=== PATIENT | female | born 1980 | race Two or more races ===

== ENCOUNTER → 2024-10-27 | Outpatient (CLI) | payer OTHER ==
[~2024-10-27] MED LIST: ACET-897 PO; GNP250TA9 PO; PRENTAB9 PO; PREV15TA2 PO; TUMS500C PO; folate PO
== END ==
LOC: M WHC 12:31
PROVIDERS: ATTEND Obstetrics & Gynecology
DX: Z34.93 Encounter for supervision of normal pregnancy, unspecified, third trimester (principal); Z3A.36 36 weeks gestation of pregnancy

== ENCOUNTER → 2024-10-31 | Outpatient (REF) | payer OTHER | LOC: M SFHCWAGY 09:45 | PROVIDERS: ATTEND Obstetrics & Gynecology | DX: Z3A.36 36 weeks gestation of pregnancy (principal); Z36.85 Encounter for antenatal screening for Streptococcus B ==

== ENCOUNTER 2024-11-01 06:31 | Outpatient (CLI) | payer OTHER ==
[~2024-11-01] VITALS: Ht 170.2 cm; Wt 101.3 kg
[2024-11-01] MEDS ORDERED: folate PO (07:03)
[2024-11-01] MEDS ORDERED: TUMS500C PO (07:03)
[2024-11-01] MEDS ORDERED: PREV15TA2 PO (07:03)
[2024-11-01] MEDS ORDERED: ACET-897 PO (07:03)
[2024-11-01] MEDS ORDERED: PRENTAB9 PO (07:03)
[2024-11-01] MEDS ORDERED: GNP250TA9 PO (07:03)
[2024-11-01 07:15] VITALS: BP 116/65; O2SAT 97
[2024-11-01] MEDS ORDERED: HOME MED LIST COMPLETE! XX SCH (07:15)
[2024-11-01] MEDS: TERBUTALINE SULFATE 1 MG/ML 1ML VIAL SC STA (07:36)
[2024-11-01 07:56] VITALS: BP 142/80
[2024-11-01 08:36] VITALS: BP 131/80
[2024-11-01 10:55] VITALS: BP 127/74; O2SAT 97
== END 2024-11-01 11:06 | disposition home or self-care (01) ==
LOC: M LDO 06:31
PROVIDERS: ATTEND Specialist
DX: O32.1XX0 Maternal care for breech presentation, not applicable or unspecified (principal); O09.523 Supervision of elderly multigravida, third trimester; Z3A.36 36 weeks gestation of pregnancy; Z88.2 Allergy status to sulfonamides
CPT/HCPCS: 59025; 96372; G0463; J3105

== ENCOUNTER 2024-11-16 05:34 | Inpatient (IN) | payer OTHER ==
[2024-11-16] VITALS (9 sets, daily range): BP systolic 107–134; BP diastolic 60–78; TEMP 97.8; O2SAT 97–99
[~2024-11-16] VITALS: Ht 170.2 cm; Wt 103.3 kg
[2024-11-16] MEDS: LACTATED RINGER'S 1000 ML IV STA (06:24)
[2024-11-16 06:32] LABS: PLATELET COUNT, AUTOMATED 137 10^3/uL (150-450)
[2024-11-16] MEDS: LR 1,000 ML IV SCH ×4 (07:22→09:00)
[2024-11-16] MEDS: BICITRA 30 ML SOLN UDC PO ONE (07:24)
[2024-11-16 07:25] LABS: HIV 1&2 SCREEN NEGATIVE (NEGATIVE)
[2024-11-16] MEDS: ceFAZolin SODIUM 2 GM in DEXTROSE 5% (D5W) ADV/MINI-BAG 50 ML IV ONE (07:25)
[2024-11-16 07:33] LABS: HEPATITIS C VIRUS ABY INDEX < 0.02 INDEX (<0.8)
[2024-11-16] MEDS ORDERED: MORPHINE PRES-FREE INJ 10 MG/10 ML VIAL As Ordered ONE (07:42)
[2024-11-16] MEDS ORDERED: ONDANSETRON 4MG 2ML VIAL As Ordered ONE (08:05)
[2024-11-16] MEDS ORDERED: dexAMETHasone 4 MG/ML 1 ML VIAL As Ordered ONE (08:05)
[2024-11-16] MEDS ORDERED: PHENYLephrine 500MCG 5ML (100MCG/ML) SYRINGE As Ordered ONE (08:05)
[2024-11-16] MEDS ORDERED: MIDAZOLAM INJ 2 MG/2 ML VIAL As Ordered ONE (08:16)
[2024-11-16] MEDS ORDERED: OXYTOCIN 30UNITS IN 0.9% NaCl 500ML IV BAG As Ordered ONE (08:34)
[2024-11-16] MEDS ORDERED: PERCOCET 5MG/325MG TAB PO PRN ×2 (08:35)
[2024-11-16] MEDS ORDERED: MOM 30 ML SUSPENSION UDC PO PRN (08:35)
[2024-11-16] MEDS ORDERED: RHOGAM 300MCG (1500IU) INJ IM SCH (08:35)
[2024-11-16] MEDS ORDERED: ONDANSETRON 4MG 2ML VIAL IV PRN ×4 (08:35→09:00)
[2024-11-16] MEDS ORDERED: METHYLERGONOVINE MALEATE 0.2 MG/ML 1 ML VIAL IM PRN (08:35)
[2024-11-16] MEDS ORDERED: SIMETHICONE 80MG CHEW TAB PO PRN (08:35)
[2024-11-16] MEDS: OXYTOCIN DRIP 30 UNITS in IV 1 EA IV SCH (08:35)
[2024-11-16] MEDS ORDERED: CALCIUM CARBONATE 500 MG CHEW U/D PO PRN (08:35)
[2024-11-16] MEDS ORDERED: KETOROLAC 30 MG/ML 1 ML VIAL As Ordered ONE (08:48)
[2024-11-16] MEDS ORDERED: PERCOCET PO (08:51)
[2024-11-16] MEDS ORDERED: COLA100C5 PO (08:51)
[2024-11-16] MEDS ORDERED: IBUP80TA PO (08:51)
[2024-11-16] MEDS ORDERED: NALOXONE INJ 0.4 MG/1 ML VIAL IV PRN ×6 (09:00)
[2024-11-16] MEDS: DOCUSATE SODIUM 100 MG CAPSULE PO SCH (09:00)
[2024-11-16] MEDS: SLF 3 ML SYR IV SCH (09:00)
[2024-11-16] MEDS: PRENATAL VITAMINS CHEWABLE TABLET PO SCH (09:00)
[2024-11-16] MEDS ORDERED: LIDOCAINE 1% SDV 5 ML VIAL SC PRN (09:00)
[2024-11-16] MEDS ORDERED: SLF 3 ML SYR IV SCH ×2 (09:00)
[2024-11-16] MEDS ORDERED: diphenhydrAMINE 50 MG/ML VIAL IV PRN ×3 (09:00)
[2024-11-16] MEDS ORDERED: **NOTE PATIENT COMMENT** MISC XX SCH ×3 (09:00)
[2024-11-16] MEDS ORDERED: TRAM50TA2 PO (09:10)
[2024-11-16] MEDS: KETOROLAC 30 MG/ML 1 ML VIAL IV SCH ×2 (15:31→20:38)
[2024-11-17] MEDS: ACETAMINOPHEN 500 MG TAB PO PRN (00:27)
[2024-11-17 02:00] VITALS: BP 112/61; O2SAT 97
[2024-11-17 06:00] VITALS: BP 118/68; O2SAT 99
[2024-11-17] MEDS: traMADol 50 MG TAB PO PRN (09:50)
[2024-11-17 09:59] VITALS: BP 128/61; O2SAT 95
[2024-11-17] MEDS ORDERED: IBUPROFEN 800 MG TAB PO SCH (10:35)
[2024-11-17 12:21] LABS: PLATELET COUNT, AUTOMATED 131 10^3/uL (150-450)
[2024-11-17 14:01] VITALS: BP 120/69; O2SAT 97
[2024-11-17 18:21] VITALS: BP 122/74; O2SAT 97
[2024-11-17 22:09] VITALS: BP 130/69; O2SAT 98
[2024-11-18 01:59] VITALS: BP 131/81; O2SAT 100
[2024-11-18 06:00] VITALS: BP 135/78; O2SAT 98
[2024-11-18] MEDS: MEASLES,MUMPS,RUBELLA VACCINE INJ (MMR-II) SC.IMMUN ONE (08:17)
== END 2024-11-18 14:40 | disposition home or self-care (01) | DRG 773 ==
LOC: M LDI 05:34 → EDSTATUS 07:30 → M OBS 10:42
PROVIDERS: ADMIT Obstetrics & Gynecology; ATTEND Obstetrics & Gynecology
PROC: 10D00Z1 Extraction of Products of Conception, Low, Open Approach (ICD-10-PCS; principal; 2024-11-16 07:30)
DX: O32.1XX0 Maternal care for breech presentation, not applicable or unspecified (principal); O36.63X0 Maternal care for excessive fetal growth, third trimester, not applicable or unspecified; Z3A.39 39 weeks gestation of pregnancy; Z37.0 Single live birth

== ENCOUNTER 2024-11-20 11:04 | Emergency (ER) | payer OTHER ==
[~2024-11-20] VITALS: Ht 170.2 cm; Wt 98.1 kg
[~2024-11-20 11:04] MED LIST changes: +COLA100C5 PO; +IBUP80TA PO; +PERCOCET PO; +TRAM50TA2 PO
[2024-11-20 11:08] VITALS: TEMP 98; O2SAT 99
[2024-11-20 11:09] VITALS: BP 160/90
[2024-11-20] MEDS ORDERED: MAG100TA PO (12:23)
[2024-11-20] MEDS ORDERED: [UNRECOGNIZED DRUG - OTHER] PO (12:23)
[2024-11-20 12:40] LABS: APPEARANCE, URINE CLEAR (CLEAR); BACTERIA, URINE AUTO NEGATIVE (NEGATIVE); BILIRUBIN, URINE AUTO NEGATIVE (NEGATIVE); BLOOD, URINE BLOOD 1+ (NEGATIVE); GLUCOSE, URINE (UA) AUTO NEGATIVE (NEGATIVE); KETONE, URINE AUTO NEGATIVE (NEGATIVE); LEUKOCYTE ESTERASE, URINE AUTO NEGATIVE (NEGATIVE); NITRITE, URINE AUTO NEGATIVE (NEGATIVE); PROTEIN, URINE AUTO NEGATIVE (NEGATIVE); RBC, URINE AUTO 1 /HPF (0-3); SPECIFIC GRAVITY URINE AUTO 1.008 (1.002-1.035); SQUAMOUS EPITHELIAL CELL UR AU 1 /HPF (0-6); UROBILINOGEN, URINE AUTO 0.2 mg/dL (0.0-2.0); WBC, URINE AUTO 0 /HPF (0-3)
[2024-11-20 13:25] LABS: BASO # 0.1 10^3/uL (0.0-0.2); BASO % 0.6 % (0.0-1.0); EOS # 0.4 10^3/uL (0.0-0.5); EOS % 3.5 % (0.0-3.0); LYMPH # 1.8 10^3/uL (1.5-5.0); LYMPH % 15.5 % (24.0-44.0); MONO # 0.7 10^3/uL (0.0-0.8); MONO % 6.1 % (2.0-8.0); NEUTROPHILS # 8.4 10^3/uL (1.5-8.5); NEUTROPHILS % 72.7 % (36.0-66.0); PLATELET COUNT, AUTOMATED 210 10^3/uL (150-450)
[2024-11-20 13:30] LABS: INR 0.87
[2024-11-20 13:39] LABS: ALT/SGPT 57 U/L (7.0-40); AST/SGOT 70 U/L (<34); CALCIUM LEVEL 8.2 MG/DL (8.5-10.1); CARBON DIOXIDE LEVEL 24 MMOL/L (20-31); CHLORIDE LEVEL 105 MMOL/L (98-107); CREATININE FOR GFR 0.55 MG/DL (0.55-1.30); GLOMERULAR FILTRATION RATE > 90.0 (>58); LDH LACTATE DEHYDROGENASE 235 U/L (120-246); MAGNESIUM LEVEL 1.8 MG/DL (1.8-2.4); POTASSIUM SERUM 4.0 MMOL/L (3.5-5.1); SODIUM LEVEL 138 MMOL/L (136-145)
[2024-11-20] MEDS ORDERED: LABE100T40 PO (18:11)
== END 2024-11-20 12:10 | disposition admitted as inpatient to this hospital (09) ==
LOC: M ED 11:04
DX: Z53.21 Procedure and treatment not carried out due to patient leaving prior to being seen by health care provider (principal)

== ENCOUNTER 2024-11-20 12:13 | Outpatient (CLI) | payer OTHER ==
[~2024-11-20] VITALS: Ht 170.2 cm; Wt 98.3 kg
[2024-11-20] VITALS (10 sets, daily range): BP systolic 73–146; BP diastolic 67–126; O2SAT 98–99
[2024-11-20] MEDS ORDERED: [UNRECOGNIZED DRUG - OTHER] PO (12:23)
[2024-11-20] MEDS ORDERED: MAG100TA PO (12:23)
[2024-11-20] MEDS ORDERED: HOME MED LIST COMPLETE! XX SCH (12:25)
[2024-11-20] MEDS ORDERED: IBUPROFEN 800 MG TAB PO ONE (14:05)
[2024-11-20] MEDS ORDERED: KETOROLAC 30 MG/ML 1 ML VIAL IV ONE (14:15)
[2024-11-20] MEDS: KETOROLAC 30 MG/ML 1 ML VIAL IV ONE (14:30)
[2024-11-20] MEDS: LABETALOL 100 MG TAB PO ONE (17:06)
[2024-11-20] MEDS ORDERED: LABE100T40 PO (18:11)
== END 2024-11-20 18:30 | disposition home or self-care (01) ==
LOC: M LDO 12:13
PROVIDERS: ATTEND Advanced Practice Midwife
DX: O14.05 Mild to moderate pre-eclampsia, complicating the puerperium (principal); O90.89 Other complications of the puerperium, not elsewhere classified; R51.9 Headache, unspecified
CPT/HCPCS: 80048; 80076; 81001; 82247; 83615; 83735; 84450; 84460; 84550; 85025; 85384; 85610; 85730; 86850; 86900; 86901; 93005; 96374; 99284; G0463; J1885